=== PATIENT | female | born 1985 | race Caucasian/White ===

== ENCOUNTER 2018-06-29 00:15 | Inpatient (IN) | payer OTHER ==
[2018-06-29] MEDS ORDERED: LACTATED RINGER'S 1,000 ML IV (00:40)
[2018-06-29] MEDS ORDERED: OXYTOCIN 30 UNITS/LR 500 ML IV ×2 (01:00→02:30)
[2018-06-29] MEDS ORDERED: CARBOPROST 250 MCG INJ IM ×2 (01:00→02:30)
[2018-06-29] MEDS ORDERED: MISOPROSTOL 200 MCG TAB PR ×2 (01:00→02:30)
[2018-06-29] MEDS: AMPICILLIN 2 GM/NS (PMX) 100 ML IV (01:00)
[2018-06-29] MEDS ORDERED: LIDOCAINE 1% (MPF) 30 ML INJ INJ (01:00)
[2018-06-29] MEDS ORDERED: METHYLERGONOVINE 0.2 MG INJ IM ×2 (01:00→02:30)
[2018-06-29] MEDS ORDERED: BUTORPHANOL 2 MG INJ IV (01:00)
[2018-06-29 01:24] LABS: ADD MAN DIFF? NO
[2018-06-29 01:25] LABS: WHITE BLOOD COUNT 11.8 10^3/ul (4.8-10.8)
[2018-06-29 01:25] LABS: BASOPHIL # 0.1 10^3/ul (0.0-0.1); BASOPHILS % 0.4 % (0.0-2.0); EOSINOPHILS # 0.1 10^3/ul (0.0-0.5); EOSINOPHILS % 0.8 % (0.0-7.0); HEMATOCRIT 37.1 % (37.0-47.0); HEMOGLOBIN 12.7 g/dl (12.0-16.0); LYMPHOCYTES # 1.9 10^3/ul (0.8-2.9); LYMPHOCYTES % 15.9 % (15.0-51.0); MEAN CORPUSCULAR HEMOGLOBIN 30.4 pg (29.0-33.0); MEAN CORPUSCULAR HGB CONC 34.2 g/dl (32.0-37.0); MEAN CORPUSCULAR VOLUME 88.8 fl (82.0-101.0); MEAN PLATELET VOLUME 12.5 fl (7.4-10.4); MONOCYTE # 0.8 10^3/ul (0.3-0.9); MONOCYTES % 7.1 % (0.0-11.0); NEUTROPHIL # 8.8 10^3/ul (1.6-7.5); NEUTROPHILS % 74.8 % (39.0-77.0); PLATELET COUNT 138 10^3/UL (140-415); RED BLOOD COUNT 4.18 10^6/ul (4.20-5.40); RED CELL DISTRIBUTION WIDTH 12.8 % (11.5-14.5)
[2018-06-29 01:29] LABS: ADD UMIC YES; UR ASCORBIC ACID NEGATIVE (NEGATIVE); UR BACTERIA FEW /HPF (NONE SEEN); UR BILIRUBIN (Dip) NEGATIVE (NEGATIVE); UR BLOOD (Dip) 3+ mg/dL (NEGATIVE); UR CLARITY CLOUDY (CLEAR); UR COLOR YELLOW (YELLOW); UR GLUCOSE (Dip) NEGATIVE (NEGATIVE); UR KETONES (Dip) NEGATIVE (NEGATIVE); UR LEUKOCYTE ESTERASE (Dip) TRACE Leu/ul (NEGATIVE); UR NITRITE (Dip) NEGATIVE (NEGATIVE); UR RBC 7 /HPF (0-5); UR SPECIFIC GRAVITY (Dip) 1.012 (1.003-1.030); UR SQUAMOUS EPITHELIAL CELL FEW /HPF (FEW); UR TOTAL PROTEIN (Dip) 1+ mg/dl (NEGATIVE); UR UROBILINOGEN (Dip) NEGATIVE (NEGATIVE); UR WBC 6 /HPF (0-5)
[2018-06-29 01:43] LABS: URIC ACID 4.2 mg/dl (3.1-7.9)
[2018-06-29 01:45] LABS: ALANINE AMINOTRANSFERASE 13 IU/L (13-69); ALBUMIN 3.7 g/dl (3.3-4.9); ALBUMIN/GLOBULIN RATIO 1.19; ALKALINE PHOSPHATASE 204 IU/L (42-121); ANION GAP 14 (5-13); ASPARTATE AMINO TRANSFERASE 26 IU/L (15-46); BILIRUBIN,INDIRECT 0.2 mg/dl (0-1.1); BILIRUBIN,TOTAL 0.2 mg/dl (0.2-1.3); BLOOD UREA NITROGEN 6 mg/dl (7-20); CALCIUM 9.4 mg/dl (8.4-10.2); CARBON DIOXIDE 22 mmol/L (21-31); CHLORIDE 102 mmol/L (97-110); CREATININE 0.45 mg/dl (0.44-1.00); Estimated GFR > 60 mL/min (>60); GLUCOSE 92 mg/dl (70-220); POTASSIUM 3.7 mmol/L (3.5-5.1); SODIUM 138 mmol/L (135-144); TOTAL PROTEIN 6.8 g/dl (6.1-8.1)
[2018-06-29 01:46] LABS: INR 0.91; PARTIAL THROMBOPLASTIN TIME 26.4 Sec (23.0-35.0); PROTIME 12.4 Sec (11.9-14.9)
[2018-06-29] MEDS ORDERED: NALOXONE (0.4 MG/ML) INJ IV (02:00)
[2018-06-29] MEDS ORDERED: ZOLPIDEM 5 MG TAB PO (02:00)
[2018-06-29] MEDS ORDERED: DIPHENHYDRAMINE 50 MG INJ IV (02:00)
[2018-06-29] MEDS ORDERED: ONDANSETRON 4 MG INJ IV ×2 (02:00→02:30)
[2018-06-29] MEDS ORDERED: HYDROmorphONE 0.5 MG/0.5 ML SYG IV ×2 (02:00)
[2018-06-29] MEDS ORDERED: FENTAnyl 2MCG/ML-ROPIV 0.2% 100 ML BAG EPI (02:00)
[2018-06-29] MEDS ORDERED: KETOROLAC 30 MG INJ IV (02:00)
[2018-06-29] MEDS: OXYTOCIN 30 UNITS/LR 500 ML IV ×3 (02:10→05:02)
[2018-06-29] MEDS ORDERED: NACL 0.9% 3 ML SYG IV (02:30)
[2018-06-29] MEDS ORDERED: OXYCODONE/ASPIRIN (4.88/325) TAB PO (02:30)
[2018-06-29] MEDS ORDERED: AMPICILLIN 1 GM/NS (PMX) 50 ML IV (05:00)
[2018-06-29] MEDS: ACCU-CHEK XX ×5 (06:00→20:12)
[2018-06-29] MEDS: OXYCODONE/ASPIRIN (4.88/325) TAB PO ×2 (07:49→20:09)
[2018-06-29] MEDS: LANOLIN HPA 1 PKT TOP (07:50)
[2018-06-29] MEDS: BENZOCAINE 20% 56 ML SPRAY TOP (07:50)
[2018-06-29] MEDS: WITCH HAZEL/GLYCERIN PAD PR (07:50)
[2018-06-29] MEDS: SENNA/DOCUSATE NA (8.6MG/50MG) TAB PO ×2 (08:58→20:09)
[2018-06-29 15:27] LABS: RAPID PLASMA REAGIN NONREACTIVE (NR)
[2018-06-30 06:49] LABS: HEMATOCRIT 35.9 % (37.0-47.0); HEMOGLOBIN 12.2 g/dl (12.0-16.0)
[2018-06-30] MEDS: ACCU-CHEK XX ×4 (07:30→20:05)
[2018-06-30] MEDS: SENNA/DOCUSATE NA (8.6MG/50MG) TAB PO ×2 (08:23→21:17)
[2018-06-30] MEDS: CEPASTAT LOZENGE MT (10:42)
[2018-06-30] MEDS: LANOLIN HPA 1 PKT TOP ×2 (10:49→23:36)
[2018-06-30] MEDS: OXYCODONE/ASPIRIN (4.88/325) TAB PO ×2 (14:24→17:49)
[2018-06-30] MEDS: IBUPROFEN 600 MG TAB PO (23:47)
[2018-07-01] MEDS: IBUPROFEN 600 MG TAB PO ×2 (05:35→11:35)
[2018-07-01] MEDS: ACCU-CHEK XX ×2 (08:00→10:05)
[2018-07-01] MEDS: SENNA/DOCUSATE NA (8.6MG/50MG) TAB PO (10:07)
[2018-07-01] MEDS: DIPHTH/TET/ACEL PERTUSS (ADULT) 0.5 ML VIAL IM* (10:08)
[2018-07-02] MEDS ORDERED: IBUPROFEN 600 MG TAB PO (02:00)
== END 2018-07-01 13:15 | disposition home or self-care (01) | DRG 807 ==
LOC: OBT 00:15 → L-D 00:15 → OBT 00:25 → L-D 00:25 → PP1 06:07
PROC: 10E0XZZ Delivery of Products of Conception, External Approach (ICD-10-PCS; principal; 2018-06-29)
PROC: 0HQ9XZZ Repair Perineum Skin, External Approach (ICD-10-PCS; 2018-06-29)
DX: O71.4 Obstetric high vaginal laceration alone (principal); Z37.0 Single live birth; Z3A.39 39 weeks gestation of pregnancy
CPT/HCPCS: 62319; 76815; 80053; 81001; 82962; 84560; 85014; 85018; 85025; 85384; 85610; 85730; 86592; 86850; 86900; 86901; 90715